=== PATIENT | male | born 1940 | race Hispanic/Latino ===

== ENCOUNTER 2018-12-31 07:59 | Outpatient (CLI) | payer MEDICARE ==
--- NOTE | 2018-12-31 09:08 | CT ---
CT ABDOMEN AND PELVIS WITH ORAL AND IV CONTRAST: HISTORY: Central abdominal pain, constipation. Nonhodgkin's lymphoma treated in 1990. COMPARISON: 11/27/2015 and 06/08/2013. FINDINGS: The lung bases are clear. Tiny low-density lesion in the right lobe of the liver is unchanged. No n ew hepatic lesions are seen. The spleen, pancreas, adrenal glands, and right kidney are normal. The re is a subcentimeter low-density lesion in the left kidney, likely cyst is stable. No free air, free fluid, or lymphadenopathy is seen in the abdomen or pelvis. A few nonenlarged mese nteric and aortocaval lymph nodes are again seen. The small bowel loops are not abnormally dilated. There is fecal material in the colon and rectum. There is sigmoid diverticulosis. There is colonic diverticulosis. There are degenerative changes in the spine. Vascular calcifications are present w ithout evidence of aneurysmal dilatation of the abdominal aorta. IMPRESSION: Stable exam. No acute process. POS: OFF
[2018-12-31] MEDS ORDERED: ISOVUE-370 76%-LOCM 1 ML ONE (16:18)
== END 2018-12-31 08:00 | disposition home or self-care (01) ==
LOC: BICCT 07:59
PROVIDERS: ATTEND Internal Medicine Gastroenterology
DX: R10.9 Unspecified abdominal pain (principal); K59.00 Constipation, unspecified
CPT/HCPCS: 74177; Q9966

== ENCOUNTER 2021-02-26 10:04 | Outpatient (CLI) | payer MEDICARE | END 2021-02-26 10:05 | disposition home or self-care (01) | PROVIDERS: ATTEND Specialist | DX: R13.13 Dysphagia, pharyngeal phase (principal); J38.01 Paralysis of vocal cords and larynx, unilateral; G12.29 Other motor neuron disease | CPT/HCPCS: 74230 ==

== ENCOUNTER 2021-02-26 13:37 | Outpatient (CLI) | payer MEDICARE ==
[~2021-02-26 13:37] MED LIST: Magnevist 469MG/ML 20 ML VIAL ONE
== END 2021-02-26 13:38 | disposition home or self-care (01) ==
LOC: BICMRI 13:37
PROVIDERS: ATTEND Specialist
DX: R25.1 Tremor, unspecified (principal); G93.89 Other specified disorders of brain; I67.89 Other cerebrovascular disease
CPT/HCPCS: 70553; 82565; A9579

== ENCOUNTER 2021-04-04 08:40 | Day surgery (SDC) | payer MEDICARE ==
[2021-04-02 16:12] VITALS: BMI 23.5
[2021-04-04] MEDS ORDERED: EPINEPHrine 1 MG/ML AMP ONE (09:44)
[2021-04-04] MEDS ORDERED: Fentanyl 100 MCG/2 ML VIAL ONE (10:23)
[2021-04-04] MEDS ORDERED: Propofol 1,000 MG/100 ML VIAL IV ONE (10:23)
[2021-04-04] MEDS ORDERED: SUGAMMADEX SODIUM 200 MG/2 ML VIAL ONE (10:23)
[2021-04-04] MEDS ORDERED: Ondansetron PF 4 MG/2 ML Vial ONE (11:46)
[2021-04-04] MEDS ORDERED: Dexamethasone 20 MG/5 ML VIAL ONE (11:46)
[2021-04-04] MEDS ORDERED: Succinylcholine 200 MG/10 ml SYRINGE FS ONE (11:46)
[2021-04-04] MEDS ORDERED: PROPOFOL 200 MG/20 ML VIAL ONE ×2 (11:46)
== END 2021-04-04 14:45 | disposition home or self-care (01) ==
LOC: SDC 08:40
PROVIDERS: ATTEND Specialist
PROC: 3E0F8GC Introduction of Other Therapeutic Substance into Respiratory Tract, Via Natural or Artificial Opening Endoscopic (ICD-10-PCS; principal; 2021-04-04)
DX: J38.01 Paralysis of vocal cords and larynx, unilateral (principal); R13.13 Dysphagia, pharyngeal phase; G20 Parkinson's disease; D32.9 Benign neoplasm of meninges, unspecified; J34.2 Deviated nasal septum; I10 Essential (primary) hypertension; E78.5 Hyperlipidemia, unspecified; J45.909 Unspecified asthma, uncomplicated; N40.0 Benign prostatic hyperplasia without lower urinary tract symptoms; G62.9 Polyneuropathy, unspecified; M85.80 Other specified disorders of bone density and structure, unspecified site; M17.0 Bilateral primary osteoarthritis of knee; Z85.72 Personal history of non-Hodgkin lymphomas; Z79.899 Other long term (current) drug therapy; Z94.81 Bone marrow transplant status
CPT/HCPCS: J0171; J1100; J2405; J2704; J3010

== ENCOUNTER 2021-08-16 08:44 | Inpatient (IN) | payer MEDICARE, OTHER ==
[~2021-08-16 08:44] MED LIST changes: +Iopamidol-370 76% 500 ML 1 ML ONE; -Magnevist 469MG/ML 20 ML VIAL ONE
[2021-08-16] MEDS ORDERED: Acetaminophen 325 MG TAB ONE (09:46)
[2021-08-16 10:06] LABS: Hemoglobin 12.5 g/dL (14.0-18.0); Mean Corpuscular HGB CONC 33.5 g/dL (32.0-36.0); Mean Corpuscular Hemoglobin 31.2 pg (27.0-31.0); Mean Corpuscular Volume 92.9 fL (78.0-98.0); Mean Platelet Volume 9.5 fL (7.4-10.4); Platelet Count 79 thou/uL (130-400); RBC Distribution Width 12.1 % (11.5-14.5); White Blood Cell (WBC) Count 7.5 thou/uL (4.8-10.8)
[2021-08-16 10:13] LABS: ALT (SGPT) 154 U/L (8-55); AST (SGOT) 918 U/L (5-34); Albumin 3.6 g/dL (3.4-4.8); Alkaline Phosphatase 288 U/L (40-110); Anion Gap 14 mmol/L (10-20); BUN (Urea Nitrogen) 33 mg/dL (8.4-25.7); Bilirubin, Total 4.1 mg/dL (0.2-1.2); Calc. Creatinine Clearance 0 mL/min (70-130); Calcium 10.1 mg/dL (7.8-10.44); Carbon Dioxide 24 mmol/L (23-31); Chloride 103 mmol/L (98-107); Globulin 2.9 g/dL (2.4-3.5); Glucose 162 mg/dL (83-110); Lipase 771 U/L (8-78); Magnesium 1.6 mg/dL (1.6-2.6); Potassium 3.9 mmol/L (3.5-5.1); Protein, Total 6.5 g/dL (5.8-8.1); Sodium 137 mmol/L (136-145)
[2021-08-16 10:20] LABS: Band 37 % (5-11); Lymphocytes 11 % (21-51); MDiff Complete? YES; Monocytes 3 % (0-10); Neutrophil 49 % (42-75); Platelet Morphology Comment Appears Decreased; RBC Morphology Normal
[2021-08-16] MEDS ORDERED: Piperacillin/Tazobactam 4.5 GM VIAL ONE (10:34)
[2021-08-16 10:35] LABS: CKMB 0.8 ng/mL (0-6.6)
[2021-08-16 10:45] LABS: Bilirubin Negative (Negative); Blood, Urine Negative (Negative); Clarity Clear (Clear); Glucose, Urine (Dipstick) 200 mg/dL (Negative); Ketone, Urine Negative (Negative); Leukocyte Negative Leu/uL (Negative); Nitrite Negative (Negative); Protein, Urine (Dipstick) 10 mg/dL (Neg-Trace); Urobilinogen Normal mg/dL (Less than 2); pH, Urine 6.5 (5.0-9.0)
[2021-08-16 11:08] LABS: SARS-CoV-2 NAA Rapid Test Not Detected (NotDetected)
[2021-08-16] MEDS ORDERED: Vancomycin 1 GM/200 ML BAG ONE (11:14)
[2021-08-16 13:33] LABS: Lactic Acid 2.6 mmol/L (0.5-2.2)
[2021-08-16 14:08] LABS: Troponin I 0.079 ng/mL (< 0.028)
[2021-08-16] MEDS ORDERED: Norepinephrine 8 MG/0.9% NS 250 ML ONE (14:21)
[2021-08-16 16:12] LABS: Troponin I 0.127 ng/mL (< 0.028)
[2021-08-16 16:28] LABS: HBCM Index 0.06 S/CO (0-0.79); Hep A IgM AB Non-Reactive (NonReactive); Hep A IgM S/CO 0.16 S/CO (0-0.79); Hep C IgG Ab Non-Reactive (NonReactive); Hep C Index 0.08 S/CO (0-0.79); Hepatitis B Core IgM Abs Non-Reactive (NonReactive)
[2021-08-16 17:41] VITALS: BMI 25.0
[2021-08-16] MEDS ORDERED: Acetaminophen 500 MG TAB PO PRN (18:17)
[2021-08-16] MEDS ORDERED: Communication Order-Pharmacy FS ONE (18:17)
[2021-08-16] MEDS ORDERED: Ondansetron PF 4 MG/2 ML Vial IVP PRN (18:17)
[2021-08-16] MEDS ORDERED: Norepinephrine 8 MG/0.9% NS 250 ML IVPB SCH (18:17)
[2021-08-16] MEDS ORDERED: Ondansetron ODT 4 MG TAB PO PRN (18:17)
[2021-08-16 18:27] LABS: HBSAg Index 0.25 S/CO (0-0.99); Hep B Surf Ag NonReactive S/CO (NonReactive)
[2021-08-16] MEDS: Sodium Chloride 0.9% 1,000 ML IV SCH (18:47)
[2021-08-16] MEDS ORDERED: Vancomycin HCl 1 GM in Sodium Chloride 0.9% 250 ML 300 ML IVPB SCH (21:00)
[2021-08-16] MEDS ORDERED: Piperacillin/Tazobactam 3.375 GM in Sodium Chloride 0.9% 100 ML IVPB SCH (22:00)
[2021-08-16] MEDS: Piperacillin/Tazobactam 3.375 GM in Sodium Chloride 0.9% 100 ML IVPB SCH (22:42)
[2021-08-17] MEDS: Sodium Chloride 0.9% 1,000 ML IV SCH ×3 (03:03→15:13)
[2021-08-17 03:45] LABS: #Eosinphils 0.1 thou/uL (0.0-0.7); #Lymphocytes 0.9 thou/uL (1.20-3.40); #Monocytes 0.6 thou/uL (0.11-0.59); #Neutrophils 7.5 thou/uL (1.40-6.50); %Basophils 0.3 % (0.0-1.0); %Eosinophils 1.4 % (0.0-10.0); %Lymphocytes 9.5 % (21.0-51.0); %Monocytes 6.7 % (0.0-10.0); %Neutrophils 82.2 % (42.0-75.0); Hemoglobin 11.5 g/dL (14.0-18.0); Mean Corpuscular HGB CONC 34.5 g/dL (32.0-36.0); Mean Corpuscular Hemoglobin 32.6 pg (27.0-31.0); Mean Corpuscular Volume 94.5 fL (78.0-98.0); Mean Platelet Volume 9.8 fL (7.4-10.4); Platelet Count 55 thou/uL (130-400); RBC Distribution Width 12.3 % (11.5-14.5); Red Blood Cell (RBC) Count 3.52 mill/uL (4.70-6.10); White Blood Cell (WBC) Count 9.1 thou/uL (4.8-10.8)
[2021-08-17 04:14] LABS: ALT (SGPT) 222 U/L (8-55); AST (SGOT) 291 U/L (5-34); Alkaline Phosphatase 205 U/L (40-110); Anion Gap 12 mmol/L (10-20); BUN (Urea Nitrogen) 23 mg/dL (8.4-25.7); Bilirubin, Total 4.2 mg/dL (0.2-1.2); Calc. Creatinine Clearance 55 mL/min (70-130); Calcium 8.1 mg/dL (7.8-10.44); Carbon Dioxide 20 mmol/L (23-31); Chloride 111 mmol/L (98-107); Globulin 2.4 g/dL (2.4-3.5); Glucose 87 mg/dL (83-110); Lipase 64 U/L (8-78); Potassium 3.8 mmol/L (3.5-5.1); Protein, Total 5.4 g/dL (5.8-8.1); Sodium 139 mmol/L (136-145)
[2021-08-17] MEDS: Piperacillin/Tazobactam 3.375 GM in Sodium Chloride 0.9% 100 ML IVPB SCH ×3 (06:09→22:39)
[2021-08-17] MEDS ORDERED: Fentanyl 100 MCG/2 ML VIAL ONE (08:21)
[2021-08-17] MEDS ORDERED: Ketamine 50 MG/ML (10ML VIAL) ONE (08:21)
[2021-08-17] MEDS ORDERED: Famotidine/PF 20 mg/2ml Vial SLOW IVP SCH (09:00)
[2021-08-17] MEDS ORDERED: Vancomycin 1 GM in Premix Bag 1 BAG IVPB SCH (12:00)
[2021-08-17] MEDS ORDERED: Iothalamate Meglumine 60% 50 ML VIAL FS ONE (12:19)
[2021-08-17] MEDS ORDERED: Indomethacin 50 MG SUPP ONE (12:20)
[2021-08-17] MEDS: VANCOMYCIN 1.25 GM/250 ML BAG 1.25 GM in Premix Bag 1 BAG IVPB SCH (12:37)
[2021-08-17] MEDS ORDERED: PROPOFOL 200 MG/20 ML VIAL ONE (12:53)
[2021-08-17] MEDS ORDERED: Lidocaine 1% PF 5 ML VIAL ONE (12:53)
[2021-08-17] MEDS ORDERED: Glycopyrrolate 0.2 MG/ML 5 ML SYRINGE ONE (12:53)
[2021-08-17] MEDS ORDERED: Ondansetron PF 4 MG/2 ML Vial ONE (12:53)
[2021-08-17] MEDS ORDERED: Rocuronium Bromide 10 MG/ML (10ML VIAL) ONE (12:53)
[2021-08-17] MEDS ORDERED: Zonisamide 100 MG CAP PO PRN (17:12)
[2021-08-17] MEDS: Bisacodyl 10 MG SUPP PR PRN (18:24)
[2021-08-17] MEDS: Carbidopa/Levodopa 25-100 mg Tablet PO SCH (21:48)
[2021-08-17] MEDS: Famotidine/PF 20 mg/2ml Vial SLOW IVP SCH (21:49)
[2021-08-17] MEDS: Amantadine HCl 100 mg Capsule PO SCH (21:52)
[2021-08-17] MEDS ORDERED: Lorazepam 2 MG/ML VIAL SLOW IVP PRN (22:39)
[2021-08-18] MEDS: Sodium Chloride 0.9% 1,000 ML IV SCH ×3 (00:40→11:03)
[2021-08-18] MEDS: Entacapone 200 mg Tablet PO SCH ×3 (00:41→20:30)
[2021-08-18 04:59] LABS: ALT (SGPT) 57 U/L (8-55); AST (SGOT) 117 U/L (5-34); Albumin 2.7 g/dL (3.4-4.8); Alkaline Phosphatase 180 U/L (40-110); Anion Gap 11 mmol/L (10-20); BUN (Urea Nitrogen) 23 mg/dL (8.4-25.7); Bilirubin, Total 4.7 mg/dL (0.2-1.2); Calc. Creatinine Clearance 57 mL/min (70-130); Calcium 7.9 mg/dL (7.8-10.44); Carbon Dioxide 18 mmol/L (23-31); Chloride 114 mmol/L (98-107); Globulin 2.5 g/dL (2.4-3.5); Glucose 101 mg/dL (83-110); Lipase 54 U/L (8-78); Potassium 3.6 mmol/L (3.5-5.1); Protein, Total 5.2 g/dL (5.8-8.1); Sodium 139 mmol/L (136-145)
[2021-08-18 05:07] LABS: #Eosinphils 0.1 thou/uL (0.0-0.7); #Lymphocytes 0.5 thou/uL (1.20-3.40); #Monocytes 0.5 thou/uL (0.11-0.59); #Neutrophils 5.3 thou/uL (1.40-6.50); %Basophils 0.1 % (0.0-1.0); %Eosinophils 1.1 % (0.0-10.0); %Lymphocytes 7.7 % (21.0-51.0); %Monocytes 7.1 % (0.0-10.0); %Neutrophils 84.1 % (42.0-75.0); Hemoglobin 11.1 g/dL (14.0-18.0); Mean Corpuscular HGB CONC 33.1 g/dL (32.0-36.0); Mean Corpuscular Hemoglobin 31.1 pg (27.0-31.0); Mean Corpuscular Volume 94.2 fL (78.0-98.0); Mean Platelet Volume 10.5 fL (7.4-10.4); Platelet Count 53 thou/uL (130-400); RBC Distribution Width 12.4 % (11.5-14.5); Red Blood Cell (RBC) Count 3.56 mill/uL (4.70-6.10); White Blood Cell (WBC) Count 6.3 thou/uL (4.8-10.8)
[2021-08-18] MEDS: Piperacillin/Tazobactam 3.375 GM in Sodium Chloride 0.9% 100 ML IVPB SCH ×2 (05:40→14:04)
[2021-08-18 05:58] LABS: Troponin I 0.159 ng/mL (< 0.028)
[2021-08-18] MEDS: Amantadine HCl 100 mg Capsule PO SCH ×2 (09:52→20:30)
[2021-08-18] MEDS: Carbidopa/Levodopa 25-100 mg Tablet PO SCH ×3 (09:52→22:17)
[2021-08-18] MEDS: Famotidine/PF 20 mg/2ml Vial SLOW IVP SCH ×2 (10:27→20:30)
[2021-08-18] MEDS: VANCOMYCIN 1.25 GM/250 ML BAG 1.25 GM in Premix Bag 1 BAG IVPB SCH (12:23)
[2021-08-18] MEDS: cefTRIAXone\\ROCEPHIN 2 GM in Sodium Chloride 0.9% 100 ML IVPB SCH (16:24)
[2021-08-18] MEDS: Sodium Chloride 0.45% 1,000 ML IV SCH (17:11)
[2021-08-19] MEDS: Carbidopa/Levodopa 25-100 mg Tablet PO SCH ×3 (05:07→21:42)
[2021-08-19] MEDS: Sodium Chloride 0.45% 1,000 ML IV SCH ×2 (05:46→06:45)
[2021-08-19] MEDS: Famotidine/PF 20 mg/2ml Vial SLOW IVP SCH ×2 (09:27→21:42)
[2021-08-19] MEDS: Entacapone 200 mg Tablet PO SCH ×2 (09:28→21:41)
[2021-08-19] MEDS: Amantadine HCl 100 mg Capsule PO SCH ×2 (09:30→21:41)
[2021-08-19 13:37] LABS: #Lymphocytes 0.6 thou/uL (1.20-3.40); #Monocytes 0.8 thou/uL (0.11-0.59); %Eosinophils 0.1 % (0.0-10.0); %Lymphocytes 5.6 % (21.0-51.0); %Monocytes 7.6 % (0.0-10.0); %Neutrophils 86.7 % (42.0-75.0); Hemoglobin 12.2 g/dL (14.0-18.0); Mean Corpuscular HGB CONC 34.5 g/dL (32.0-36.0); Mean Corpuscular Hemoglobin 32.3 pg (27.0-31.0); Mean Corpuscular Volume 93.5 fL (78.0-98.0); Mean Platelet Volume 9.7 fL (7.4-10.4); Platelet Count 67 thou/uL (130-400); RBC Distribution Width 12.5 % (11.5-14.5); Red Blood Cell (RBC) Count 3.78 mill/uL (4.70-6.10); White Blood Cell (WBC) Count 10.4 thou/uL (4.8-10.8)
[2021-08-19 13:52] LABS: ALT (SGPT) 49 U/L (8-55); AST (SGOT) 47 U/L (5-34); Albumin 2.7 g/dL (3.4-4.8); Alkaline Phosphatase 231 U/L (40-110); Anion Gap 13 mmol/L (10-20); BUN (Urea Nitrogen) 19 mg/dL (8.4-25.7); Bilirubin, Total 7.3 mg/dL (0.2-1.2); Calc. Creatinine Clearance 70 mL/min (70-130); Calcium 8.1 mg/dL (7.8-10.44); Carbon Dioxide 16 mmol/L (23-31); Chloride 109 mmol/L (98-107); Globulin 2.9 g/dL (2.4-3.5); Glucose 203 mg/dL (83-110); Potassium 3.3 mmol/L (3.5-5.1); Protein, Total 5.6 g/dL (5.8-8.1); Sodium 135 mmol/L (136-145)
[2021-08-19] MEDS: cefTRIAXone\\ROCEPHIN 2 GM in Sodium Chloride 0.9% 100 ML IVPB SCH (14:25)
[2021-08-19] MEDS: Bisacodyl 10 MG SUPP PR PRN (15:00)
[2021-08-19] MEDS ORDERED: Dextrose 50% Abboject 50 ML SYRINGE SLOW IVP PRN (17:03)
[2021-08-19] MEDS ORDERED: Dextrose 5% in Water 1,000 ML IV PRN (17:03)
[2021-08-20] MEDS: Carbidopa/Levodopa 25-100 mg Tablet PO SCH ×3 (05:53→21:50)
[2021-08-20] MEDS: Sodium Chloride 0.45% 1,000 ML IV SCH ×2 (05:53→22:16)
[2021-08-20 06:59] LABS: Hemoglobin 13.4 g/dL (14.0-18.0); Mean Corpuscular HGB CONC 32.8 g/dL (32.0-36.0); Mean Corpuscular Hemoglobin 30.8 pg (27.0-31.0); Mean Corpuscular Volume 93.6 fL (78.0-98.0); Mean Platelet Volume 9.5 fL (7.4-10.4); Platelet Count 79 thou/uL (130-400); RBC Distribution Width 12.6 % (11.5-14.5); Red Blood Cell (RBC) Count 4.35 mill/uL (4.70-6.10); White Blood Cell (WBC) Count 12.2 thou/uL (4.8-10.8)
[2021-08-20 07:16] LABS: ALT (SGPT) 45 U/L (8-55); AST (SGOT) 43 U/L (5-34); Albumin 2.7 g/dL (3.4-4.8); Alkaline Phosphatase 258 U/L (40-110); Anion Gap 10 mmol/L (10-20); BUN (Urea Nitrogen) 15 mg/dL (8.4-25.7); Bilirubin, Direct 5.1 mg/dL (0.1-0.3); Bilirubin, Total 6.8 mg/dL (0.2-1.2); Calc. Creatinine Clearance 74 mL/min (70-130); Calcium 7.8 mg/dL (7.8-10.44); Carbon Dioxide 22 mmol/L (23-31); Chloride 106 mmol/L (98-107); Globulin 2.4 g/dL (2.4-3.5); Glucose 192 mg/dL (83-110); Lipase 23 U/L (8-78); Potassium 3.3 mmol/L (3.5-5.1); Protein, Total 5.1 g/dL (5.8-8.1); Sodium 135 mmol/L (136-145)
[2021-08-20 07:59] LABS: Band 7 % (5-11); Lymphocytes 8 % (21-51); MDiff Complete? YES; Monocytes 9 % (0-10); Neutrophil 76 % (42-75); Platelet Morphology Comment Appears Decreased; Polychromasia SLIGHT = 2-3 cells (100X) (0-2/hpf)
[2021-08-20] MEDS: Amantadine HCl 100 mg Capsule PO SCH ×2 (08:26→21:48)
[2021-08-20] MEDS: Entacapone 200 mg Tablet PO SCH ×2 (08:26→21:48)
[2021-08-20] MEDS: Famotidine/PF 20 mg/2ml Vial SLOW IVP SCH ×3 (08:26→22:54)
[2021-08-20] MEDS: HumaLOG 300 UNITS/3 ML VIAL SC PRN (18:37)
[2021-08-20] MEDS: Enoxaparin Sodium 40 MG/0.4 ML SYRINGE SC SCH (21:47)
[2021-08-20] MEDS: Tamsulosin HCl 0.4 MG CAP PO SCH (21:48)
[2021-08-20] MEDS: clonazePAM 1 MG TAB PO SCH (21:48)
[2021-08-20] MEDS ORDERED: Docusate 100 MG CAP PO SCH (22:33)
[2021-08-20] MEDS ORDERED: Docusate Sodium 100 MG/10 ML UDCUP PO SCH (22:43)
[2021-08-21 05:58] LABS: Hemoglobin 12.9 g/dL (14.0-18.0); Mean Corpuscular HGB CONC 34.4 g/dL (32.0-36.0); Mean Platelet Volume 10.1 fL (7.4-10.4); Platelet Count 75 thou/uL (130-400); RBC Distribution Width 12.8 % (11.5-14.5); Red Blood Cell (RBC) Count 4.03 mill/uL (4.70-6.10); White Blood Cell (WBC) Count 11.1 thou/uL (4.8-10.8)
[2021-08-21 06:18] LABS: ALT (SGPT) 40 U/L (8-55); AST (SGOT) 29 U/L (5-34); Albumin 2.3 g/dL (3.4-4.8); Alkaline Phosphatase 216 U/L (40-110); Anion Gap 9 mmol/L (10-20); BUN (Urea Nitrogen) 14 mg/dL (8.4-25.7); Bilirubin, Total 4.4 mg/dL (0.2-1.2); Calc. Creatinine Clearance 75 mL/min (70-130); Calcium 8.4 mg/dL (7.8-10.44); Carbon Dioxide 23 mmol/L (23-31); Chloride 106 mmol/L (98-107); Globulin 2.9 g/dL (2.4-3.5); Glucose 151 mg/dL (83-110); Lipase 22 U/L (8-78); Potassium 3.2 mmol/L (3.5-5.1); Protein, Total 5.2 g/dL (5.8-8.1); Sodium 135 mmol/L (136-145)
[2021-08-21] MEDS: Carbidopa/Levodopa 25-100 mg Tablet PO SCH ×3 (06:22→20:05)
[2021-08-21 06:31] LABS: Band 6 % (5-11); Lymphocytes 11 % (21-51); MDiff Complete? YES; Monocytes 8 % (0-10); Neutrophil 75 % (42-75); Platelet Morphology Comment Appears Decreased
[2021-08-21] MEDS ORDERED: Senokot S 8.6-50 MG TAB PO PRN (08:08)
[2021-08-21] MEDS ORDERED: Potassium Chloride 20 MEQ TAB PER TUBE SCH (08:15)
[2021-08-21] MEDS ORDERED: Electrolyte Replacement Protocol 1 EACH FS SCH (08:15)
[2021-08-21] MEDS ORDERED: Electrolyte Replacement Protocol FS PRN (08:15)
[2021-08-21] MEDS: Pantoprazole 40 MG GRANULES PACKET PER TUBE SCH (08:29)
[2021-08-21] MEDS: Amantadine HCl 100 mg Capsule PO SCH ×2 (08:29→23:58)
[2021-08-21] MEDS: Entacapone 200 mg Tablet PO SCH ×2 (08:29→23:59)
[2021-08-21] MEDS: Polyethylene Glycol 3350 17 GM Packet PER TUBE SCH (08:29)
[2021-08-21] MEDS ORDERED: Magnesium 2 GM/50 ML 2 GM in Premix Bag 1 BAG IVPB SCH (10:00)
[2021-08-21] MEDS: Sodium Chloride 0.45% 1,000 ML IV SCH (12:03)
[2021-08-21] MEDS: HumaLOG 300 UNITS/3 ML VIAL SC PRN (13:02)
[2021-08-21 15:44] LABS: Potassium 3.7 mmol/L (3.5-5.1)
[2021-08-21] MEDS ORDERED: Sodium Bicarbonate Tab 325 MG TAB PER TUBE PRN (23:15)
[2021-08-21] MEDS ORDERED: Pancrelipase DR 12,000 1 CAP FS PRN (23:15)
[2021-08-21] MEDS: Enoxaparin Sodium 40 MG/0.4 ML SYRINGE SC SCH (23:59)
[2021-08-21] MEDS: clonazePAM 1 MG TAB PO SCH (23:59)
[2021-08-22] MEDS: Carbidopa/Levodopa 25-100 mg Tablet PO SCH ×4 (00:58→20:34)
[2021-08-22] MEDS: HumaLOG 300 UNITS/3 ML VIAL SC PRN ×2 (06:01→18:10)
[2021-08-22 06:16] LABS: Hemoglobin 11.8 g/dL (14.0-18.0); Mean Corpuscular Hemoglobin 30.2 pg (27.0-31.0); Mean Corpuscular Volume 94.3 fL (78.0-98.0); Mean Platelet Volume 10.2 fL (7.4-10.4); Platelet Count 93 thou/uL (130-400); Red Blood Cell (RBC) Count 3.92 mill/uL (4.70-6.10); White Blood Cell (WBC) Count 11.1 thou/uL (4.8-10.8)
[2021-08-22 06:30] LABS: ALT (SGPT) 28 U/L (8-55); AST (SGOT) 43 U/L (5-34); Albumin 2.3 g/dL (3.4-4.8); Alkaline Phosphatase 233 U/L (40-110); Anion Gap 12 mmol/L (10-20); BUN (Urea Nitrogen) 17 mg/dL (8.4-25.7); Bilirubin, Total 2.7 mg/dL (0.2-1.2); Calc. Creatinine Clearance 70 mL/min (70-130); Calcium 7.9 mg/dL (7.8-10.44); Carbon Dioxide 23 mmol/L (23-31); Chloride 104 mmol/L (98-107); Globulin 2.8 g/dL (2.4-3.5); Glucose 179 mg/dL (83-110); Potassium 3.3 mmol/L (3.5-5.1); Protein, Total 5.1 g/dL (5.8-8.1); Sodium 136 mmol/L (136-145)
[2021-08-22] MEDS ORDERED: Potassium Chloride 20 MEQ TAB PO SCH (07:30)
[2021-08-22] MEDS: Pantoprazole 40 MG GRANULES PACKET PER TUBE SCH (08:41)
[2021-08-22] MEDS: Polyethylene Glycol 3350 17 GM Packet PER TUBE SCH (08:41)
[2021-08-22] MEDS: Entacapone 200 mg Tablet PO SCH ×2 (08:42→20:36)
[2021-08-22] MEDS: Amantadine HCl 100 mg Capsule PO SCH ×2 (08:45→20:36)
[2021-08-22 08:55] LABS: Band 4 % (5-11); Eosinophils 1 % (0-10); Lymphocytes 12 % (21-51); MDiff Complete? YES; Metamyelocyte 1 % (0-0); Monocytes 7 % (0-10); Myelocyte 1 % (0-0); Neutrophil 74 % (42-75); Platelet Morphology Comment Appears Decreased; Polychromasia SLIGHT = 2-3 cells (100X) (0-2/hpf)
[2021-08-22] MEDS ORDERED: Finasteride 5 MG TAB PO SCH (09:00)
[2021-08-22] MEDS ORDERED: Electrolyte Replacement Protocol 1 EACH FS PRN (10:21)
[2021-08-22 15:19] LABS: Potassium 3.7 mmol/L (3.5-5.1)
[2021-08-22] MEDS: Tamsulosin HCl 0.4 MG CAP PO SCH ×2 (20:34)
[2021-08-22] MEDS: Enoxaparin Sodium 40 MG/0.4 ML SYRINGE SC SCH (20:34)
[2021-08-22] MEDS: Acetaminophen 650 MG Suppository PR PRN (20:35)
[2021-08-22] MEDS: clonazePAM 1 MG TAB PO SCH (20:36)
[2021-08-23] MEDS: Carbidopa/Levodopa 25-100 mg Tablet PO SCH ×4 (02:15→20:04)
[2021-08-23 04:49] LABS: Hemoglobin 10.5 g/dL (14.0-18.0); Mean Corpuscular HGB CONC 34.1 g/dL (32.0-36.0); Mean Corpuscular Hemoglobin 32.4 pg (27.0-31.0); Mean Platelet Volume 10.3 fL (7.4-10.4); Platelet Count 93 thou/uL (130-400); RBC Distribution Width 13.1 % (11.5-14.5); Red Blood Cell (RBC) Count 3.25 mill/uL (4.70-6.10); White Blood Cell (WBC) Count 10.5 thou/uL (4.8-10.8)
[2021-08-23 05:04] LABS: ALT (SGPT) 18 U/L (8-55); AST (SGOT) 53 U/L (5-34); Alkaline Phosphatase 289 U/L (40-110); Anion Gap 9 mmol/L (10-20); BUN (Urea Nitrogen) 21 mg/dL (8.4-25.7); Bilirubin, Total 2.1 mg/dL (0.2-1.2); Calc. Creatinine Clearance 73 mL/min (70-130); Calcium 7.6 mg/dL (7.8-10.44); Carbon Dioxide 24 mmol/L (23-31); Chloride 104 mmol/L (98-107); Globulin 2.8 g/dL (2.4-3.5); Glucose 233 mg/dL (83-110); Magnesium 1.9 mg/dL (1.6-2.6); Potassium 3.5 mmol/L (3.5-5.1); Protein, Total 4.8 g/dL (5.8-8.1); Sodium 133 mmol/L (136-145)
[2021-08-23] MEDS: HumaLOG 300 UNITS/3 ML VIAL SC PRN ×3 (05:46→22:01)
[2021-08-23] MEDS: Entacapone 200 mg Tablet PO SCH ×2 (08:14→20:05)
[2021-08-23] MEDS: Polyethylene Glycol 3350 17 GM Packet PER TUBE SCH (08:15)
[2021-08-23] MEDS: Amantadine HCl 100 mg Capsule PO SCH ×2 (08:15→21:02)
[2021-08-23] MEDS: Acetaminophen 650 MG Suppository PR PRN (09:00)
[2021-08-23] MEDS: Pantoprazole 40 MG VIAL IVP SCH (09:00)
[2021-08-23] MEDS: Carvedilol 3.125 MG TAB PO SCH (17:02)
[2021-08-23] MEDS: clonazePAM 1 MG TAB PO SCH (20:05)
[2021-08-23] MEDS: Enoxaparin Sodium 40 MG/0.4 ML SYRINGE SC SCH (20:06)
[2021-08-23 22:45] LABS: SARS-CoV-2 PCR by NAA Not Detected (NotDetected)
[2021-08-24] MEDS: HumaLOG 300 UNITS/3 ML VIAL SC PRN ×4 (00:01→18:37)
[2021-08-24] MEDS: Carbidopa/Levodopa 25-100 mg Tablet PO SCH ×4 (02:42→21:00)
[2021-08-24 05:24] LABS: ALT (SGPT) 19 U/L (8-55); AST (SGOT) 49 U/L (5-34); Alkaline Phosphatase 351 U/L (40-110); Anion Gap 10 mmol/L (10-20); BUN (Urea Nitrogen) 21 mg/dL (8.4-25.7); Bilirubin, Total 1.7 mg/dL (0.2-1.2); Calc. Creatinine Clearance 68 mL/min (70-130); Calcium 7.7 mg/dL (7.8-10.44); Carbon Dioxide 24 mmol/L (23-31); Chloride 102 mmol/L (98-107); Glucose 287 mg/dL (83-110); Potassium 3.8 mmol/L (3.5-5.1); Sodium 132 mmol/L (136-145)
[2021-08-24] MEDS ORDERED: Magnesium 2 GM/50 ML 2 GM in Premix Bag 1 BAG IVPB SCH (07:00)
[2021-08-24] MEDS: Entacapone 200 mg Tablet PO SCH ×2 (08:43→21:00)
[2021-08-24] MEDS: Amantadine HCl 100 mg Capsule PO SCH ×2 (08:44→21:00)
[2021-08-24] MEDS: Doxazosin Mesylate 1 MG TAB PO SCH (08:44)
[2021-08-24] MEDS: Carvedilol 3.125 MG TAB PO SCH ×2 (08:44→16:56)
[2021-08-24] MEDS: Polyethylene Glycol 3350 17 GM Packet PER TUBE SCH (08:44)
[2021-08-24] MEDS: DEXTROAMPHETAMINE PO SCH ×2 (10:34→13:55)
[2021-08-24] MEDS: Pantoprazole 40 MG VIAL IVP SCH (10:34)
[2021-08-24] MEDS: AMPHETAMINE PO SCH ×2 (10:34→13:55)
[2021-08-24] MEDS ORDERED: ISOVUE-370 76%-LOCM 1 ML ONE (11:49)
[2021-08-24] MEDS: clonazePAM 1 MG TAB PO SCH (21:00)
[2021-08-24] MEDS: Enoxaparin Sodium 40 MG/0.4 ML SYRINGE SC SCH (21:01)
[2021-08-24] MEDS: Acetaminophen 650 MG Suppository PR PRN (21:20)
[2021-08-25] MEDS: HumaLOG 300 UNITS/3 ML VIAL SC PRN ×2 (01:00→18:35)
[2021-08-25] MEDS: Carbidopa/Levodopa 25-100 mg Tablet PO SCH ×4 (01:01→20:49)
[2021-08-25 05:45] LABS: #Eosinphils 0.1 thou/uL (0.0-0.7); #Neutrophils 13.1 thou/uL (1.40-6.50); %Basophils 0.1 % (0.0-1.0); %Lymphocytes 6.5 % (21.0-51.0); %Monocytes 6.3 % (0.0-10.0); %Neutrophils 86.2 % (42.0-75.0); Hemoglobin 10.4 g/dL (14.0-18.0); Mean Corpuscular HGB CONC 33.9 g/dL (32.0-36.0); Mean Corpuscular Hemoglobin 32.2 pg (27.0-31.0); Platelet Count 115 thou/uL (130-400); RBC Distribution Width 13.1 % (11.5-14.5); Red Blood Cell (RBC) Count 3.22 mill/uL (4.70-6.10); White Blood Cell (WBC) Count 15.2 thou/uL (4.8-10.8)
[2021-08-25 07:34] LABS: ALT (SGPT) 35 U/L (8-55); AST (SGOT) 53 U/L (5-34); Albumin 2.2 g/dL (3.4-4.8); Alkaline Phosphatase 322 U/L (40-110); Anion Gap 8 mmol/L (10-20); BUN (Urea Nitrogen) 23 mg/dL (8.4-25.7); Bilirubin, Total 1.7 mg/dL (0.2-1.2); Calc. Creatinine Clearance 67 mL/min (70-130); Calcium 8.1 mg/dL (7.8-10.44); Carbon Dioxide 27 mmol/L (23-31); Chloride 102 mmol/L (98-107); Globulin 3.2 g/dL (2.4-3.5); Glucose 214 mg/dL (83-110); Potassium 4.3 mmol/L (3.5-5.1); Protein, Total 5.4 g/dL (5.8-8.1); Sodium 133 mmol/L (136-145)
[2021-08-25] MEDS: Carvedilol 3.125 MG TAB PO SCH ×2 (08:27→16:30)
[2021-08-25] MEDS: Entacapone 200 mg Tablet PO SCH ×2 (09:03→20:49)
[2021-08-25] MEDS: Doxazosin Mesylate 1 MG TAB PO SCH (09:03)
[2021-08-25] MEDS: Amantadine HCl 100 mg Capsule PO SCH ×2 (09:03→20:49)
[2021-08-25] MEDS: Polyethylene Glycol 3350 17 GM Packet PER TUBE SCH (09:04)
[2021-08-25] MEDS: Pantoprazole 40 MG VIAL IVP SCH (09:04)
[2021-08-25] MEDS ORDERED: Furosemide 20 MG/2 ML VIAL SLOW IVP SCH (09:15)
[2021-08-25] MEDS ORDERED: Vancomycin HCl 0.75 GM in Sodium Chloride 0.9% 250 ML 250 ML IVPB SCH (10:00)
[2021-08-25] MEDS: DEXTROAMPHETAMINE PO SCH ×2 (10:35→14:37)
[2021-08-25] MEDS: AMPHETAMINE PO SCH ×2 (10:35→14:37)
[2021-08-25 15:35] LABS: INR-International Normal Ratio 1.2; Prothrombin Time 15.7 sec (12.0-14.7)
[2021-08-25] MEDS: Enoxaparin Sodium 40 MG/0.4 ML SYRINGE SC SCH (20:48)
[2021-08-25] MEDS: Cefepime 2 GM in Sodium Chloride 0.9% 100 ML IVPB SCH (20:49)
[2021-08-25] MEDS: clonazePAM 1 MG TAB PO SCH (20:49)
[2021-08-25] MEDS: Vancomycin HCl 750 MG in Sodium Chloride 0.9% 250 ML 250 ML IVPB SCH (21:35)
[2021-08-26] MEDS: Carbidopa/Levodopa 25-100 mg Tablet PO SCH ×4 (01:21→20:47)
[2021-08-26 04:27] LABS: #Eosinphils 0.1 thou/uL (0.0-0.7); #Neutrophils 12.5 thou/uL (1.40-6.50); %Eosinophils 0.6 % (0.0-10.0); %Lymphocytes 6.7 % (21.0-51.0); %Neutrophils 85.7 % (42.0-75.0); Hemoglobin 10.4 g/dL (14.0-18.0); Mean Corpuscular Hemoglobin 31.6 pg (27.0-31.0); Mean Platelet Volume 10.8 fL (7.4-10.4); Platelet Count 136 thou/uL (130-400); RBC Distribution Width 12.8 % (11.5-14.5); Red Blood Cell (RBC) Count 3.28 mill/uL (4.70-6.10); White Blood Cell (WBC) Count 14.6 thou/uL (4.8-10.8)
[2021-08-26 04:51] LABS: ALT (SGPT) 19 U/L (8-55); AST (SGOT) 47 U/L (5-34); Alkaline Phosphatase 326 U/L (40-110); Anion Gap 12 mmol/L (10-20); BUN (Urea Nitrogen) 27 mg/dL (8.4-25.7); Bilirubin, Total 1.4 mg/dL (0.2-1.2); Calc. Creatinine Clearance 64 mL/min (70-130); Carbon Dioxide 24 mmol/L (23-31); Chloride 102 mmol/L (98-107); Globulin 3.5 g/dL (2.4-3.5); Glucose 329 mg/dL (83-110); Potassium 4.5 mmol/L (3.5-5.1); Protein, Total 5.5 g/dL (5.8-8.1); Sodium 133 mmol/L (136-145)
[2021-08-26] MEDS: HumaLOG 300 UNITS/3 ML VIAL SC PRN ×2 (06:14→12:39)
[2021-08-26 07:03] LABS: INR-International Normal Ratio 1.3; Prothrombin Time 16.1 sec (12.0-14.7)
[2021-08-26 07:04] LABS: PTT 40.1 sec (22.9-36.1)
[2021-08-26] MEDS: Carvedilol 3.125 MG TAB PO SCH ×2 (08:31→16:22)
[2021-08-26] MEDS: Doxazosin Mesylate 1 MG TAB PO SCH (08:31)
[2021-08-26] MEDS: Pantoprazole 40 MG VIAL IVP SCH (08:31)
[2021-08-26] MEDS: Entacapone 200 mg Tablet PO SCH ×2 (08:33→20:49)
[2021-08-26] MEDS: Amantadine HCl 100 mg Capsule PO SCH ×2 (08:33→20:49)
[2021-08-26] MEDS: Cefepime 2 GM in Sodium Chloride 0.9% 100 ML IVPB SCH ×2 (08:34→20:33)
[2021-08-26] MEDS: Polyethylene Glycol 3350 17 GM Packet PER TUBE SCH (08:34)
[2021-08-26] MEDS: AMPHETAMINE PO SCH ×2 (09:38→16:21)
[2021-08-26] MEDS: DEXTROAMPHETAMINE PO SCH ×2 (09:38→16:21)
[2021-08-26] MEDS: Furosemide 20 MG/2 ML VIAL SLOW IVP SCH (09:39)
[2021-08-26] MEDS: Vancomycin HCl 750 MG in Sodium Chloride 0.9% 250 ML 250 ML IVPB SCH (10:10)
[2021-08-26] MEDS ORDERED: Sodium Bicarbonate 2.5 MEQ/5 ML VIAL ONE (14:20)
[2021-08-26] MEDS ORDERED: Midazolam HCl 2 mg/2 ml Vial ONE (14:20)
[2021-08-26] MEDS ORDERED: Fentanyl 100 MCG/2 ML VIAL ONE (14:20)
[2021-08-26 17:33] LABS: RBC Count-Automated (BF) 5969 /cu.mm; WBC/Nucleated-Auto (BF) 7692 /cu.mm
[2021-08-26 18:23] LABS: Clarity Cloudy/Turbid (Clear)
[2021-08-26 18:26] LABS: BF Segmented Neutrophils 89 %; Cell Count Non Hematic 11 %
[2021-08-26 18:36] LABS: Tube # EDTA
[2021-08-26] MEDS: Enoxaparin Sodium 40 MG/0.4 ML SYRINGE SC SCH (20:46)
[2021-08-26] MEDS: clonazePAM 1 MG TAB PO SCH (20:47)
[2021-08-26] MEDS: Acetaminophen 650 MG/20.3 ML UDCUP PER TUBE PRN (20:50)
[2021-08-26 21:29] LABS: Vancomycin, Trough 7.8 ug/mL
[2021-08-26] MEDS: VANCOMYCIN 1.25 GM/250 ML BAG 1.25 GM in Premix Bag 1 BAG IVPB SCH (22:04)
[2021-08-27] MEDS: Carbidopa/Levodopa 25-100 mg Tablet PO SCH ×4 (02:52→20:35)
[2021-08-27] MEDS: Acetaminophen 650 MG/20.3 ML UDCUP PER TUBE PRN (02:53)
[2021-08-27 04:37] LABS: #Eosinphils 0.1 thou/uL (0.0-0.7); #Lymphocytes 0.9 thou/uL (1.20-3.40); #Neutrophils 10.7 thou/uL (1.40-6.50); %Basophils 0.2 % (0.0-1.0); %Eosinophils 1.1 % (0.0-10.0); %Lymphocytes 7.3 % (21.0-51.0); %Monocytes 7.5 % (0.0-10.0); %Neutrophils 83.9 % (42.0-75.0); Hemoglobin 9.5 g/dL (14.0-18.0); Mean Corpuscular HGB CONC 32.7 g/dL (32.0-36.0); Mean Corpuscular Hemoglobin 31.6 pg (27.0-31.0); Mean Corpuscular Volume 96.6 fL (78.0-98.0); Mean Platelet Volume 10.1 fL (7.4-10.4); Platelet Count 148 thou/uL (130-400); RBC Distribution Width 12.8 % (11.5-14.5); Red Blood Cell (RBC) Count 3.01 mill/uL (4.70-6.10); White Blood Cell (WBC) Count 12.8 thou/uL (4.8-10.8)
[2021-08-27 04:59] LABS: ALT (SGPT) 9 U/L (8-55); AST (SGOT) 35 U/L (5-34); Alkaline Phosphatase 289 U/L (40-110); Anion Gap 11 mmol/L (10-20); BUN (Urea Nitrogen) 35 mg/dL (8.4-25.7); Bilirubin, Total 1.3 mg/dL (0.2-1.2); Calc. Creatinine Clearance 60 mL/min (70-130); Calcium 8.1 mg/dL (7.8-10.44); Carbon Dioxide 23 mmol/L (23-31); Chloride 104 mmol/L (98-107); Globulin 3.3 g/dL (2.4-3.5); Glucose 199 mg/dL (83-110); Potassium 4.2 mmol/L (3.5-5.1); Protein, Total 5.3 g/dL (5.8-8.1); Sodium 134 mmol/L (136-145)
[2021-08-27] MEDS: Pantoprazole 40 MG VIAL IVP SCH (08:11)
[2021-08-27] MEDS: Furosemide 20 MG/2 ML VIAL SLOW IVP SCH (08:11)
[2021-08-27] MEDS: Entacapone 200 mg Tablet PO SCH ×2 (08:11→20:34)
[2021-08-27] MEDS: Cefepime 2 GM in Sodium Chloride 0.9% 100 ML IVPB SCH ×2 (08:11→20:34)
[2021-08-27] MEDS: Amantadine HCl 100 mg Capsule PO SCH ×2 (08:13→20:34)
[2021-08-27] MEDS: Carvedilol 3.125 MG TAB PO SCH ×2 (08:13→18:14)
[2021-08-27] MEDS: Doxazosin Mesylate 1 MG TAB PO SCH (08:13)
[2021-08-27] MEDS: Polyethylene Glycol 3350 17 GM Packet PER TUBE SCH (08:23)
[2021-08-27] MEDS: VANCOMYCIN 1.25 GM/250 ML BAG 1.25 GM in Premix Bag 1 BAG IVPB SCH ×2 (10:04→22:12)
[2021-08-27] MEDS: AMPHETAMINE PO SCH ×2 (10:06→15:12)
[2021-08-27] MEDS: DEXTROAMPHETAMINE PO SCH ×2 (10:06→15:12)
[2021-08-27] MEDS: HumaLOG 300 UNITS/3 ML VIAL SC PRN ×2 (14:29→18:40)
[2021-08-27] MEDS: clonazePAM 1 MG TAB PO SCH (20:34)
[2021-08-27] MEDS: Enoxaparin Sodium 40 MG/0.4 ML SYRINGE SC SCH (20:34)
[2021-08-28] MEDS: Carbidopa/Levodopa 25-100 mg Tablet PO SCH ×4 (02:17→20:28)
[2021-08-28] MEDS: HumaLOG 300 UNITS/3 ML VIAL SC PRN (05:46)
[2021-08-28 07:18] LABS: #Eosinphils 0.1 thou/uL (0.0-0.7); #Lymphocytes 1.1 thou/uL (1.20-3.40); #Monocytes 0.8 thou/uL (0.11-0.59); #Neutrophils 10.1 thou/uL (1.40-6.50); %Basophils 0.1 % (0.0-1.0); %Monocytes 6.8 % (0.0-10.0); %Neutrophils 83.2 % (42.0-75.0); Mean Corpuscular HGB CONC 33.4 g/dL (32.0-36.0); Mean Corpuscular Hemoglobin 31.9 pg (27.0-31.0); Mean Corpuscular Volume 95.6 fL (78.0-98.0); Platelet Count 173 thou/uL (130-400); RBC Distribution Width 12.7 % (11.5-14.5); Red Blood Cell (RBC) Count 3.14 mill/uL (4.70-6.10); White Blood Cell (WBC) Count 12.1 thou/uL (4.8-10.8)
[2021-08-28 07:43] LABS: ALT (SGPT) 29 U/L (8-55); AST (SGOT) 36 U/L (5-34); Alkaline Phosphatase 329 U/L (40-110); Anion Gap 11 mmol/L (10-20); BUN (Urea Nitrogen) 39 mg/dL (8.4-25.7); Bilirubin, Total 1.2 mg/dL (0.2-1.2); Calc. Creatinine Clearance 66 mL/min (70-130); Calcium 8.2 mg/dL (7.8-10.44); Carbon Dioxide 24 mmol/L (23-31); Chloride 105 mmol/L (98-107); Globulin 3.6 g/dL (2.4-3.5); Glucose 218 mg/dL (83-110); Potassium 4.1 mmol/L (3.5-5.1); Protein, Total 5.6 g/dL (5.8-8.1); Sodium 136 mmol/L (136-145)
[2021-08-28] MEDS: Entacapone 200 mg Tablet PO SCH ×2 (10:35→20:29)
[2021-08-28] MEDS: Carvedilol 3.125 MG TAB PO SCH ×2 (10:36→18:32)
[2021-08-28] MEDS: Cefepime 2 GM in Sodium Chloride 0.9% 100 ML IVPB SCH ×2 (10:36→20:31)
[2021-08-28] MEDS: Amantadine HCl 100 mg Capsule PO SCH ×2 (10:36→20:29)
[2021-08-28] MEDS: Doxazosin Mesylate 1 MG TAB PO SCH (10:36)
[2021-08-28] MEDS: Pantoprazole 40 MG VIAL IVP SCH (10:37)
[2021-08-28] MEDS: Furosemide 20 MG/2 ML VIAL SLOW IVP SCH (10:37)
[2021-08-28] MEDS: VANCOMYCIN 1.25 GM/250 ML BAG 1.25 GM in Premix Bag 1 BAG IVPB SCH ×2 (10:38→22:12)
[2021-08-28] MEDS: DEXTROAMPHETAMINE PO SCH ×2 (11:21→15:00)
[2021-08-28] MEDS: AMPHETAMINE PO SCH ×2 (11:21→15:00)
[2021-08-28] MEDS: Polyethylene Glycol 3350 17 GM Packet PER TUBE SCH (13:18)
[2021-08-28] MEDS: Enoxaparin Sodium 40 MG/0.4 ML SYRINGE SC SCH (20:29)
[2021-08-28] MEDS: clonazePAM 1 MG TAB PO SCH (20:29)
[2021-08-28] MEDS: Zonisamide 25 MG CAP PO SCH (20:37)
[2021-08-28] MEDS ORDERED: Zonisamide 100 MG CAP PO SCH (21:00)
[2021-08-29] MEDS: Carbidopa/Levodopa 25-100 mg Tablet PO SCH ×4 (02:19→20:36)
[2021-08-29] MEDS: HumaLOG 300 UNITS/3 ML VIAL SC PRN ×2 (06:17→17:10)
[2021-08-29] MEDS: Cefepime 2 GM in Sodium Chloride 0.9% 100 ML IVPB SCH ×2 (09:09→20:37)
[2021-08-29] MEDS: Furosemide 20 MG/2 ML VIAL SLOW IVP SCH (09:11)
[2021-08-29] MEDS: Doxazosin Mesylate 1 MG TAB PO SCH (09:11)
[2021-08-29] MEDS: Amantadine HCl 100 mg Capsule PO SCH ×2 (09:11→20:36)
[2021-08-29] MEDS: Polyethylene Glycol 3350 17 GM Packet PER TUBE SCH (09:11)
[2021-08-29] MEDS: Carvedilol 3.125 MG TAB PO SCH ×2 (09:11→16:04)
[2021-08-29] MEDS: Entacapone 200 mg Tablet PO SCH ×2 (09:12→20:36)
[2021-08-29] MEDS: Pantoprazole 40 MG VIAL IVP SCH (09:12)
[2021-08-29] MEDS: DEXTROAMPHETAMINE PO SCH ×2 (09:13→14:17)
[2021-08-29] MEDS: AMPHETAMINE PO SCH ×2 (09:13→14:17)
[2021-08-29] MEDS: VANCOMYCIN 1.25 GM/250 ML BAG 1.25 GM in Premix Bag 1 BAG IVPB SCH ×2 (10:47→21:23)
[2021-08-29] MEDS: Enoxaparin Sodium 40 MG/0.4 ML SYRINGE SC SCH (20:37)
[2021-08-29] MEDS: clonazePAM 1 MG TAB PO SCH (20:37)
[2021-08-29] MEDS: Zonisamide 25 MG CAP PO SCH (20:38)
[2021-08-30] MEDS: Carbidopa/Levodopa 25-100 mg Tablet PO SCH ×4 (01:36→20:53)
[2021-08-30] MEDS: HumaLOG 300 UNITS/3 ML VIAL SC PRN (05:52)
[2021-08-30 06:24] LABS: #Eosinphils 0.2 thou/uL (0.0-0.7); #Lymphocytes 1.3 thou/uL (1.20-3.40); #Monocytes 0.8 thou/uL (0.11-0.59); #Neutrophils 7.6 thou/uL (1.40-6.50); %Basophils 0.2 % (0.0-1.0); %Eosinophils 2.2 % (0.0-10.0); %Lymphocytes 12.9 % (21.0-51.0); %Monocytes 8.4 % (0.0-10.0); %Neutrophils 76.3 % (42.0-75.0); Hemoglobin 9.5 g/dL (14.0-18.0); Mean Corpuscular HGB CONC 33.5 g/dL (32.0-36.0); Mean Corpuscular Volume 95.4 fL (78.0-98.0); Mean Platelet Volume 9.7 fL (7.4-10.4); Platelet Count 182 thou/uL (130-400); RBC Distribution Width 12.6 % (11.5-14.5); Red Blood Cell (RBC) Count 2.97 mill/uL (4.70-6.10)
[2021-08-30] MEDS: Entacapone 200 mg Tablet PO SCH ×2 (09:14→20:54)
[2021-08-30] MEDS: Amantadine HCl 100 mg Capsule PO SCH ×2 (09:15→20:54)
[2021-08-30] MEDS: Carvedilol 3.125 MG TAB PO SCH ×2 (09:16→16:08)
[2021-08-30] MEDS: Doxazosin Mesylate 1 MG TAB PO SCH (09:16)
[2021-08-30] MEDS: DEXTROAMPHETAMINE PO SCH ×2 (09:17→16:09)
[2021-08-30] MEDS: Cefepime 2 GM in Sodium Chloride 0.9% 100 ML IVPB SCH (09:17)
[2021-08-30] MEDS: Furosemide 20 MG/2 ML VIAL SLOW IVP SCH (09:17)
[2021-08-30] MEDS: Pantoprazole 40 MG VIAL IVP SCH (09:17)
[2021-08-30] MEDS: Polyethylene Glycol 3350 17 GM Packet PER TUBE SCH (09:17)
[2021-08-30] MEDS: AMPHETAMINE PO SCH ×2 (09:17→16:09)
[2021-08-30] MEDS: VANCOMYCIN 1.25 GM/250 ML BAG 1.25 GM in Premix Bag 1 BAG IVPB SCH ×2 (09:18→22:14)
[2021-08-30] MEDS: clonazePAM 1 MG TAB PO SCH (20:54)
[2021-08-30] MEDS: Enoxaparin Sodium 40 MG/0.4 ML SYRINGE SC SCH (20:55)
[2021-08-30] MEDS: Zonisamide 25 MG CAP PO SCH (20:55)
[2021-08-31] MEDS: Carbidopa/Levodopa 25-100 mg Tablet PO SCH ×4 (02:06→21:14)
[2021-08-31] MEDS: HumaLOG 300 UNITS/3 ML VIAL SC PRN (05:37)
[2021-08-31] MEDS: Entacapone 200 mg Tablet PO SCH ×2 (08:42→21:15)
[2021-08-31] MEDS: Furosemide 20 MG/2 ML VIAL SLOW IVP SCH (08:42)
[2021-08-31] MEDS: Polyethylene Glycol 3350 17 GM Packet PER TUBE SCH (08:42)
[2021-08-31] MEDS: Pantoprazole 40 MG VIAL IVP SCH (08:42)
[2021-08-31] MEDS: Doxazosin Mesylate 1 MG TAB PO SCH (08:43)
[2021-08-31] MEDS: Amantadine HCl 100 mg Capsule PO SCH ×2 (08:43→21:15)
[2021-08-31] MEDS: Carvedilol 3.125 MG TAB PO SCH ×2 (08:44→16:58)
[2021-08-31] MEDS: AMPHETAMINE PO SCH ×2 (10:20→16:59)
[2021-08-31] MEDS: VANCOMYCIN 1.25 GM/250 ML BAG 1.25 GM in Premix Bag 1 BAG IVPB SCH ×2 (10:20→22:05)
[2021-08-31] MEDS: DEXTROAMPHETAMINE PO SCH ×2 (10:20→16:59)
[2021-08-31] MEDS ORDERED: Sodium Chloride 0.9% 10 ML ONE (11:46)
[2021-08-31] MEDS ORDERED: Ketamine 50 MG/ML (10ML VIAL) ONE (13:18)
[2021-08-31] MEDS ORDERED: PROPOFOL 200 MG/20 ML VIAL ONE (13:20)
[2021-08-31] MEDS ORDERED: ePHEDrine 50 MG/ML VIAL ONE (13:20)
[2021-08-31] MEDS ORDERED: Ondansetron HCl/PF 4 MG/2 ML Vial IVP PRN (13:37)
[2021-08-31] MEDS ORDERED: Promethazine HCl 25 MG/ML VIAL IVPB PRN (13:37)
[2021-08-31] MEDS ORDERED: Promethazine HCl 25 MG/ML VIAL IM PRN (13:37)
[2021-08-31 16:07] LABS: SARS-CoV-2 PCR by NAA Not Detected (NotDetected)
[2021-08-31] MEDS: Zonisamide 25 MG CAP PO SCH (21:14)
[2021-08-31] MEDS: Enoxaparin Sodium 40 MG/0.4 ML SYRINGE SC SCH (21:14)
[2021-08-31] MEDS: clonazePAM 1 MG TAB PO SCH (21:15)
[2021-09-01] MEDS: Carbidopa/Levodopa 25-100 mg Tablet PO SCH ×4 (02:32→20:39)
[2021-09-01] MEDS: HumaLOG 300 UNITS/3 ML VIAL SC PRN ×3 (05:39→18:28)
[2021-09-01 07:12] LABS: #Eosinphils 0.3 thou/uL (0.0-0.7); #Lymphocytes 1.2 thou/uL (1.20-3.40); #Monocytes 0.8 thou/uL (0.11-0.59); #Neutrophils 5.7 thou/uL (1.40-6.50); %Basophils 0.3 % (0.0-1.0); %Eosinophils 3.4 % (0.0-10.0); %Lymphocytes 15.3 % (21.0-51.0); %Monocytes 9.7 % (0.0-10.0); %Neutrophils 71.3 % (42.0-75.0); Hemoglobin 9.6 g/dL (14.0-18.0); Mean Corpuscular HGB CONC 33.4 g/dL (32.0-36.0); Mean Corpuscular Hemoglobin 31.6 pg (27.0-31.0); Mean Corpuscular Volume 94.6 fL (78.0-98.0); Mean Platelet Volume 9.8 fL (7.4-10.4); Platelet Count 178 thou/uL (130-400); RBC Distribution Width 12.5 % (11.5-14.5); Red Blood Cell (RBC) Count 3.03 mill/uL (4.70-6.10)
[2021-09-01 07:32] LABS: ALT (SGPT) 18 U/L (8-55); AST (SGOT) 49 U/L (5-34); Alkaline Phosphatase 322 U/L (40-110); Anion Gap 11 mmol/L (10-20); BUN (Urea Nitrogen) 34 mg/dL (8.4-25.7); Bilirubin, Total 0.7 mg/dL (0.2-1.2); Calc. Creatinine Clearance 72 mL/min (70-130); Calcium 8.1 mg/dL (7.8-10.44); Carbon Dioxide 22 mmol/L (23-31); Chloride 106 mmol/L (98-107); Globulin 3.5 g/dL (2.4-3.5); Glucose 208 mg/dL (83-110); Phosphorus 2.8 mg/dL (2.3-4.7); Protein, Total 5.5 g/dL (5.8-8.1); Sodium 135 mmol/L (136-145)
[2021-09-01] MEDS: Carvedilol 3.125 MG TAB PO SCH ×2 (08:18→16:00)
[2021-09-01] MEDS: Pantoprazole 40 MG GRANULES PACKET PO SCH (10:07)
[2021-09-01] MEDS: Amantadine HCl 100 mg Capsule PO SCH ×2 (10:07→21:32)
[2021-09-01] MEDS: Doxazosin Mesylate 1 MG TAB PO SCH (10:07)
[2021-09-01] MEDS: Entacapone 200 mg Tablet PO SCH ×2 (10:07→20:39)
[2021-09-01] MEDS: Furosemide 20 MG/2 ML VIAL SLOW IVP SCH (10:07)
[2021-09-01] MEDS: Polyethylene Glycol 3350 17 GM Packet PER TUBE SCH (10:08)
[2021-09-01] MEDS ORDERED: Magnesium 2 GM/50 ML 2 GM in Premix Bag 1 BAG IVPB SCH (10:30)
[2021-09-01] MEDS: AMPHETAMINE PO SCH ×2 (10:55→15:38)
[2021-09-01] MEDS: DEXTROAMPHETAMINE PO SCH ×2 (10:55→15:38)
[2021-09-01] MEDS: Enoxaparin Sodium 40 MG/0.4 ML SYRINGE SC SCH (20:38)
[2021-09-01] MEDS: Zonisamide 25 MG CAP PO SCH (20:39)
[2021-09-01] MEDS: clonazePAM 1 MG TAB PO SCH (20:39)
[2021-09-02] MEDS: Carbidopa/Levodopa 25-100 mg Tablet PO SCH ×4 (00:44→21:30)
[2021-09-02] MEDS: HumaLOG 300 UNITS/3 ML VIAL SC PRN ×2 (01:55→12:35)
[2021-09-02] MEDS: Entacapone 200 mg Tablet PO SCH ×2 (08:02→21:30)
[2021-09-02] MEDS: Amantadine HCl 100 mg Capsule PO SCH ×2 (08:03→21:30)
[2021-09-02] MEDS: Pantoprazole 40 MG GRANULES PACKET PO SCH (08:04)
[2021-09-02] MEDS: Doxazosin Mesylate 1 MG TAB PO SCH (08:04)
[2021-09-02] MEDS: Carvedilol 3.125 MG TAB PO SCH ×2 (08:04→16:32)
[2021-09-02] MEDS: Furosemide 40 MG TAB PO SCH (08:04)
[2021-09-02] MEDS: Polyethylene Glycol 3350 17 GM Packet PER TUBE SCH (08:06)
[2021-09-02] MEDS: DEXTROAMPHETAMINE PO SCH ×2 (10:08→14:31)
[2021-09-02] MEDS: AMPHETAMINE PO SCH ×2 (10:08→14:31)
[2021-09-02] MEDS: Zonisamide 25 MG CAP PO SCH (21:31)
[2021-09-02] MEDS: Enoxaparin Sodium 40 MG/0.4 ML SYRINGE SC SCH (21:31)
[2021-09-02] MEDS: clonazePAM 1 MG TAB PO SCH (21:31)
[2021-09-03] MEDS: HumaLOG 300 UNITS/3 ML VIAL SC PRN ×4 (00:18→18:46)
[2021-09-03] MEDS: Carbidopa/Levodopa 25-100 mg Tablet PO SCH ×4 (02:18→21:12)
[2021-09-03] MEDS: Pantoprazole 40 MG GRANULES PACKET PO SCH (08:05)
[2021-09-03] MEDS: Amantadine HCl 100 mg Capsule PO SCH ×2 (08:05→21:12)
[2021-09-03] MEDS: Entacapone 200 mg Tablet PO SCH ×2 (08:05→21:12)
[2021-09-03] MEDS: Doxazosin Mesylate 1 MG TAB PO SCH (08:07)
[2021-09-03] MEDS: Furosemide 40 MG TAB PO SCH (08:08)
[2021-09-03] MEDS: Carvedilol 3.125 MG TAB PO SCH ×2 (08:08→16:22)
[2021-09-03] MEDS: Polyethylene Glycol 3350 17 GM Packet PER TUBE SCH (08:09)
[2021-09-03] MEDS: DEXTROAMPHETAMINE PO SCH ×2 (09:31→15:28)
[2021-09-03] MEDS: AMPHETAMINE PO SCH ×2 (09:31→15:28)
[2021-09-03] MEDS: Zonisamide 25 MG CAP PO SCH (21:12)
[2021-09-03] MEDS: clonazePAM 1 MG TAB PO SCH (21:12)
[2021-09-03] MEDS: Enoxaparin Sodium 40 MG/0.4 ML SYRINGE SC SCH (21:12)
[2021-09-04] MEDS: HumaLOG 300 UNITS/3 ML VIAL SC PRN ×3 (00:10→12:14)
[2021-09-04] MEDS: Carbidopa/Levodopa 25-100 mg Tablet PO SCH ×3 (01:55→15:33)
[2021-09-04 06:06] LABS: #Eosinphils 0.3 thou/uL (0.0-0.7); #Lymphocytes 1.6 thou/uL (1.20-3.40); #Monocytes 0.9 thou/uL (0.11-0.59); #Neutrophils 5.8 thou/uL (1.40-6.50); %Basophils 0.5 % (0.0-1.0); %Eosinophils 3.7 % (0.0-10.0); %Lymphocytes 18.2 % (21.0-51.0); %Monocytes 10.2 % (0.0-10.0); %Neutrophils 67.4 % (42.0-75.0); Hemoglobin 9.9 g/dL (14.0-18.0); Mean Corpuscular HGB CONC 33.8 g/dL (32.0-36.0); Mean Corpuscular Hemoglobin 31.5 pg (27.0-31.0); Mean Corpuscular Volume 93.4 fL (78.0-98.0); Mean Platelet Volume 9.8 fL (7.4-10.4); Platelet Count 204 thou/uL (130-400); RBC Distribution Width 12.6 % (11.5-14.5); Red Blood Cell (RBC) Count 3.15 mill/uL (4.70-6.10); White Blood Cell (WBC) Count 8.6 thou/uL (4.8-10.8)
[2021-09-04 06:28] LABS: ALT (SGPT) 19 U/L (8-55); AST (SGOT) 52 U/L (5-34); Albumin 2.2 g/dL (3.4-4.8); Alkaline Phosphatase 350 U/L (40-110); Anion Gap 11 mmol/L (10-20); BUN (Urea Nitrogen) 27 mg/dL (8.4-25.7); Bilirubin, Total 0.7 mg/dL (0.2-1.2); Calc. Creatinine Clearance 76 mL/min (70-130); Calcium 8.3 mg/dL (7.8-10.44); Carbon Dioxide 22 mmol/L (23-31); Chloride 104 mmol/L (98-107); Globulin 3.6 g/dL (2.4-3.5); Glucose 170 mg/dL (83-110); Phosphorus 2.7 mg/dL (2.3-4.7); Potassium 4.5 mmol/L (3.5-5.1); Protein, Total 5.8 g/dL (5.8-8.1); Sodium 132 mmol/L (136-145)
[2021-09-04] MEDS ORDERED: Magnesium 2 GM/50 ML 2 GM in Premix Bag 1 BAG IVPB SCH (07:30)
[2021-09-04] MEDS: Furosemide 40 MG TAB PO SCH (08:09)
[2021-09-04] MEDS: Carvedilol 3.125 MG TAB PO SCH ×2 (08:11→16:14)
[2021-09-04 08:59] VITALS: BP 109/62; TEMP 97.8
[2021-09-04] MEDS: Polyethylene Glycol 3350 17 GM Packet PER TUBE SCH (09:09)
[2021-09-04] MEDS: Entacapone 200 mg Tablet PO SCH (09:09)
[2021-09-04] MEDS: Amantadine HCl 100 mg Capsule PO SCH (09:09)
[2021-09-04] MEDS: Pantoprazole 40 MG GRANULES PACKET PO SCH (09:10)
[2021-09-04] MEDS: DEXTROAMPHETAMINE PO SCH ×2 (10:08→15:32)
[2021-09-04] MEDS: AMPHETAMINE PO SCH ×2 (10:08→15:32)
[2021-09-04] MEDS ORDERED: Lantus 1000 UNITS/10 ML VIAL SC SCH (12:45)
[2021-09-04] MEDS ORDERED: Doxazosin Mesylate 1 MG TAB PO SCH (21:00)
[2021-09-05] MEDS ORDERED: Lantus 1000 UNITS/10 ML VIAL SC SCH (09:00)
== END 2021-09-04 18:17 | DRG 871 ==
LOC: ERS 08:44 → ERHOLD 13:08 → INTOOBSV 13:08 → CCU 16:51 → OBSVTOIN 18:17 → MSONC 08-19 15:50
PROVIDERS: ADMIT Family Medicine; ATTEND Internal Medicine
PROC: 3E033XZ Introduction of Vasopressor into Peripheral Vein, Percutaneous Approach (ICD-10-PCS; principal; 2021-08-16)
PROC: 0FC98ZZ Extirpation of Matter from Common Bile Duct, Via Natural or Artificial Opening Endoscopic (ICD-10-PCS; 2021-08-16)
PROC: 0DB78ZX Excision of Stomach, Pylorus, Via Natural or Artificial Opening Endoscopic, Diagnostic (ICD-10-PCS; 2021-08-16)
PROC: 0D9770Z Drainage of Stomach, Pylorus with Drainage Device, Via Natural or Artificial Opening (ICD-10-PCS; 2021-08-16)
PROC: 0F943ZZ Drainage of Gallbladder, Percutaneous Approach (ICD-10-PCS; 2021-08-26)
PROC: 0DH63UZ Insertion of Feeding Device into Stomach, Percutaneous Approach (ICD-10-PCS; 2021-08-31)
DX: A41.51 Sepsis due to Escherichia coli [E. coli] (principal); R65.21 Severe sepsis with septic shock; I21.A1 Myocardial infarction type 2; J69.0 Pneumonitis due to inhalation of food and vomit; G92.8 Other toxic encephalopathy; I50.23 Acute on chronic systolic (congestive) heart failure; K85.10 Biliary acute pancreatitis without necrosis or infection; C85.90 Non-Hodgkin lymphoma, unspecified, unspecified site; N17.9 Acute kidney failure, unspecified; Z94.81 Bone marrow transplant status; K80.42 Calculus of bile duct with acute cholecystitis without obstruction; F05 Delirium due to known physiological condition; K56.7 Ileus, unspecified; I42.9 Cardiomyopathy, unspecified; E44.0 Moderate protein-calorie malnutrition; E87.2 Acidosis; Z66 Do not resuscitate; Z20.822 Contact with and (suspected) exposure to COVID-19; G20 Parkinson's disease; D18.09 Hemangioma of other sites; K21.9 Gastro-esophageal reflux disease without esophagitis; N40.0 Benign prostatic hyperplasia without lower urinary tract symptoms; G62.9 Polyneuropathy, unspecified; M85.80 Other specified disorders of bone density and structure, unspecified site; D69.59 Other secondary thrombocytopenia; K59.09 Other constipation; J33.8 Other polyp of sinus; N18.2 Chronic kidney disease, stage 2 (mild); D53.1 Other megaloblastic anemias, not elsewhere classified; F41.9 Anxiety disorder, unspecified; E87.6 Hypokalemia; E83.42 Hypomagnesemia; R13.12 Dysphagia, oropharyngeal phase; R33.9 Retention of urine, unspecified; K94.29 Other complications of gastrostomy; Y83.8 Other surgical procedures as the cause of abnormal reaction of the patient, or of later complication, without mention of misadventure at the time of the procedure; Z79.899 Other long term (current) drug therapy; Z68.25 Body mass index [BMI] 25.0-25.9, adult
CPT/HCPCS: 0240U; 36415; 36416; 36556; 49020; 51701; 70450; 71045; 74018; 74177; 74230; 74330; 76705; 77002; 80053; 80074; 80202; 81003; 82247; 82550; 82553; 82607; 82746; 83605; 83690; 83735; 84100; 84443; 84484; 85007; 85025; 85027; 85060; 85610; 85730; 87040; 87070; 87077; 87086; 87149; 87186; 87205; 88305; 88312; 89051; 93005; 93306; 94760; 96365; 96366; 96367; B4087; C1729; C9113; J0692; J0696; J1650; J1815; J1940; J1956; J2060; J2250; J2405; J2543; J2704; J3010; J3370; J3475; J3490; J7050; Q9961-U8; Q9966; Q9967; S0028; U0003; U0005

== ENCOUNTER 2021-10-21 11:20 | Outpatient (CLI) | payer MEDICARE, OTHER ==
[2021-10-21] MEDS ORDERED: Iopamidol 370 76% 50 ML VIAL FS ONE (11:55)
== END 2021-10-21 11:21 | disposition home or self-care (01) ==
LOC: RAD 11:20
PROVIDERS: ATTEND Surgery
DX: K81.9 Cholecystitis, unspecified (principal); Z90.49 Acquired absence of other specified parts of digestive tract
CPT/HCPCS: 76000; Q9967